=== PATIENT | female | born 1965 | race Caucasian/White ===

== ENCOUNTER 2016-09-05 04:35 | Emergency (ER) | payer OTHER ==
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
[2016-09-05 05:56] LABS: URINE BILIRUBIN SMALL (NEGATIVE); URINE BLOOD MODERATE (NEGATIVE); URINE COLOR AMBER; URINE GLUCOSE (UA) NEGATIVE (NEGATIVE); URINE KETONE TRACE mg/dL (NEGATIVE); URINE PH 5.5; URINE PROTEIN 30 mg/dL (NEGATIVE); URINE UROBILINOGEN 0.2 E.U./dL (0.2 - 1.0)
[2016-09-05 05:57] LABS: URINE BACTERIA MANY /hpf (NONE SEEN); URINE EPITHELIAL CELLS MODERATE /lpf (FEW); URINE HYALINE CAST 0-2 /lpf (0-2)
--- NOTE | 2016-09-05 13:09 | Diagnostic Imaging Report ---
Lumbar spine (3 views) HISTORY: Pain There is narrowing of the L3-4 interspace. Small amount of air noted within the interspace at L5-S1 reflecting degenerative disc disease. Minimal spur formation noted off the anterior margins of the bodies of L2 and L3. Additional mild degenerative changes seen in the lower thoracic spine. IMPRESSION: 1. Mild degenerative changes as noted above
== END 2016-09-05 06:55 | disposition home or self-care (01) ==
LOC: ER 04:35
DX: S39.012A Strain of muscle, fascia and tendon of lower back, initial encounter (principal); I10 Essential (primary) hypertension; Z88.2 Allergy status to sulfonamides; Z90.49 Acquired absence of other specified parts of digestive tract; X58.XXXA Exposure to other specified factors, initial encounter; Y93.89 Activity, other specified; Y92.89 Other specified places as the place of occurrence of the external cause; Y99.8 Other external cause status
CPT/HCPCS: 99285; 96372; 72100; 81001; 81025; J1885

== ENCOUNTER 2016-10-06 15:23 | Emergency (ER) | payer MEDICARE, OTHER ==
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
[2016-10-06 18:48] LABS: % BASOPHILS 1.1 % (0.0-2.0); % EOSINOPHILS 1.6 % (0.0-5.0); % LYMPHOCYTES 20.7 % (20.0-50.0); % MONOCYTES 5.8 % (2.0-10.0); % NEUTROPHILS 70.8 % (40.0-80.0); HEMATOCRIT 37.4 % (35.0-45.0); HEMOGLOBIN 12.5 gm/dL (11.7-15.5); MEAN CELL VOLUME 90.5 fl (81-100); MEAN CORPUSCULAR HEMOGLOBIN 30.3 pg (27.0-31.0); MEAN CORPUSCULAR HGB CONC 33.5 pg (28.0-36.0); MEAN PLATELET VOLUME 8.7 fl; NEUTROPHILE ABSOLUTE 2.6 Th/cmm (1.8-8.0); PLATELET COUNT 229 Th/cmm (150-400); RED BLOOD COUNT 4.13 Mil/cmm (3.80-5.10); RED CELL DISTRIBUTION WIDTH 13.6 % (11.5-20.0)
[2016-10-06 18:51] LABS: WHITE BLOOD COUNT 3.6 Th/cmm (4.8-10.8)
[2016-10-06 18:57] LABS: INR 1.05 (0.5-1.4); PROTHROMBIN TIME (TEST) 10.9 SECONDS (9.5-11.5)
[2016-10-06 19:02] LABS: ALB/GLOB RATIO 1.6 (1.0-1.8); ANION GAP 9.2 (7.0-16.0); BILIRUBIN,TOTAL 0.4 mg/dL (0.3-1.0); BUN/CREATININE RATIO 6.9; CALCIUM SERUM 9.5 mg/dL (8.6-10.3); CARBON DIOXIDE 24.5 mEq/L (21.0-31.0); CHOLESTEROL 210 mg/dL (<200); CREATININE - SERUM 1.3 mg/dL (0.6-1.2); POTASSIUM SERUM 3.7 mEq/L (3.5-5.1); TRIGLYCERIDES 154 mg/dL (<150)
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
== END 2016-10-06 19:55 | disposition home or self-care (01) ==
LOC: ER 15:23
DX: S00.93XA Contusion of unspecified part of head, initial encounter (principal); S10.93XA Contusion of unspecified part of neck, initial encounter; I10 Essential (primary) hypertension; Z88.2 Allergy status to sulfonamides; Z90.49 Acquired absence of other specified parts of digestive tract; W01.0XXA Fall on same level from slipping, tripping and stumbling without subsequent striking against object, initial encounter; Y93.89 Activity, other specified; Y92.89 Other specified places as the place of occurrence of the external cause; Y99.8 Other external cause status
CPT/HCPCS: 99285; 96372; 70450; 72125; 72131; 84484; 36415; 83605; 84443; 86592; 85025; 85610; 85730; 80053; 80061; J1885